=== PATIENT | female | born 1980 | race Two or more races ===

== ENCOUNTER 2020-02-21 20:34 | Inpatient (IN) | payer MEDICAID ==
[~2020-02-21] VITALS: Ht 172.7 cm; Wt 72.6 kg
[~2020-02-21 20:34] MED LIST: PREN-96 PO
[2020-02-21] MEDS: LACTATED RINGER'S 1,000 ML IV SCH ×2 (21:16→23:49)
[2020-02-21] MEDS ORDERED: LACT. RINGERS/OXYTOCIN 20UNITS 1,000 ML IV SCH (21:16)
[2020-02-21] MEDS ORDERED: METHYLERGONOVINE MALEATE 0.2 MG/ML AMP IM PRN (21:30)
[2020-02-21] MEDS ORDERED: CARBOPROST TROMETHAMINE 250 MCG/1ML VIAL IM PRN (21:30)
[2020-02-21] MEDS ORDERED: WITCH HAZEL-GLYCERIN PAD TOP PRN (21:30)
[2020-02-21] MEDS ORDERED: DERMOPLAST 60ML BOTTLE TOP PRN (21:30)
[2020-02-21] MEDS ORDERED: LIDOCAINE 2%HCL (LOCAL ANESTH.) INJ 20ML MDV ID ONE (21:30)
[2020-02-21] MEDS ORDERED: PHISODERM TOP SOLN 240ML BTL TOP PRN (21:30)
[2020-02-21] MEDS ORDERED: BUTORPHANOL TARTRATE 2 MG/1 ML VIAL IV PRN (21:30)
[2020-02-21] MEDS ORDERED: TERBUTALINE SULFATE 1 MG/ML 1ML VIAL SC ONE ×2 (21:57→21:58)
[2020-02-21] MEDS ORDERED: TERBUTALINE SULFATE 1 MG/ML 1ML VIAL SC SCH (22:15)
[2020-02-21 22:35] LABS: Basophils # (auto) 0 10 ^3/uL (0-0.2); Basophils % (auto) 0.2 % (0.0-2.0); Eosinophils # (auto) 0.1 10 ^3/uL (0-0.8); Eosinophils % (auto) 0.9 % (0.0-7.0); Hemoglobin 12.8 g/dL (12.2-16.2); Lymphocytes # (auto) 1.5 10 ^3/uL (0.4-5.4); Lymphocytes % (auto) 11.6 % (10.0-50.0); Mean Corpuscular Hemoglobin 32.6 pg (28.0-32.0); Mean Corpuscular Hgb Conc. 34.5 g/dL (32.0-36.0); Mean Corpuscular Volume 94.5 fL (80.0-100.0); Monocytes # (auto) 0.9 10 ^3/uL (0-1.3); Neutrophils # (auto) 10.4 10 ^3/uL (1.6-8.6); Neutrophils % (auto) 80.3 % (37.0-80.0); Platelet Count (auto) 148 10^3/uL (140-450); Red Blood Cells 3.91 10^6/uL (4.0-5.20); Red Cell Distribution Width 13.4 % (11.8-14.3); White Blood Cell 12.9 10^3/uL (4.4-10.8)
[2020-02-21 22:43] LABS: Urine Bacteria FEW /hpf (None Seen); Urine Blood 3+ /uL (Negative); Urine WBC 80 /hpf (0 - 5)
[2020-02-21] MEDS ORDERED: PHENYLEPHRINE HCL 10 MG/ML VL ONE (22:48)
[2020-02-21] MEDS ORDERED: ePHEDrine SULFATE 50 MG/ML AMP ONE (22:48)
[2020-02-21 22:49] LABS: INR 0.91 (0.9-1.15); Partial Thromboplastin Time 30.2 sec (23.64-32.05)
[2020-02-21] MEDS ORDERED: SUCCINYLCHOLINE CHLORIDE 20 MG/ML 10ML VIAL IV ONE (22:50)
[2020-02-21 22:52] LABS: Potassium 3.9 mmol/L (3.5-5.1)
[2020-02-21] MEDS ORDERED: ROCURONIUM 10MG/ML 10ML VIAL IV ONE (22:53)
[2020-02-21] MEDS ORDERED: oxyTOCIN 10 UNIT/ML 10ML VIAL ONE (22:55)
[2020-02-21] MEDS ORDERED: ceFAZolin 1GM VL ONE (22:56)
[2020-02-21] MEDS ORDERED: PROPOFOL 10 MG/ML 20 ML IV ONE (22:56)
[2020-02-21 22:58] LABS: Albumin 2.8 g/dL (3.4-5.0); BUN/Creatinine Ratio 19.2; Bilirubin, Total 0.2 mg/dL (0.2-1.0); Calcium 8.4 mg/dL (8.5-10.1); Total Protein 6.5 g/dL (6.4-8.2)
[2020-02-21] MEDS ORDERED: fentaNYL CITRATE 100 MCG/2 ML VL ONE (23:05)
[2020-02-21] MEDS ORDERED: METOCLOPRAMIDE HCL 5MG/ml INJ 2ml VIAL ONE (23:09)
[2020-02-21] MEDS ORDERED: NALOXONE HCL 0.4 MG/ML VIAL IV PRN (23:30)
[2020-02-21] MEDS ORDERED: ONDANSETRON HCL 4 MG/2 ML VIAL IV PRN (23:30)
[2020-02-21] MEDS: ceFAZolin 1GM/50ML 50 ML IV SCH (23:30)
[2020-02-21] MEDS ORDERED: ePHEDrine SULFATE 50 MG/ML AMP IV PRN (23:30)
[2020-02-21] MEDS ORDERED: HYDROmorphone HCL 2 MG/ML VL IV PRN ×2 (23:30)
[2020-02-21] MEDS ORDERED: MEPERIDINE HCL (25 MG/ML) 1ML VIAL ONE (23:34)
[2020-02-21] MEDS ORDERED: NEOSTIGMINE 1 MG/ML INJ (10mg/10ML VIAL) ONE (23:39)
[2020-02-21] MEDS ORDERED: GLYCOPYRROLATE 0.2 MG/ML 1ML VIAL ONE (23:39)
[2020-02-22] VITALS (11 sets, daily range): BP systolic 107–124; BP diastolic 58–70
[2020-02-22] MEDS ORDERED: ONDANSETRON HCL 4 MG/2 ML VIAL IV PRN
[2020-02-22] MEDS ORDERED: HYDROmorphone HCL 2 MG/ML VL IV PRN
[2020-02-22] MEDS ORDERED: ACETAMINOPHEN IV 1000 MG/100ML (10MG/ML) IV PRN
[2020-02-22] MEDS ORDERED: ACETAMINOPHEN IV 100 ML IV ONE (00:03)
--- NOTE | 2020-02-22 00:15 | NUR ---
Bottle-feeding Education: Patient encouraged to breastfeed. Patient requests to bottle feed. Benefits of and the risk of providing formula to infant was discussed. Patient verbalized understanding of the benefits and is aware of risk and insists on bottle-feeding. Formula provided and instruction on formula preparation from the [facility] booklet reviewed with patient.
--- NOTE | 2020-02-22 00:50 | NUR ---
Post Op for LDRP: Received patient from PACU via bed to room 5. Patient A/A/Ox4, abdominal binder and bilateral SCD's are in place, IV fluids placed on pump and infusing per order, incisional site dressing clean/dry/intact and Dunbar Catheter to gravity draining clear yellow urine. Uterus firm, 3 above umbilicus, scant bleeding. Incentive Spirometer at bedside and instruction on proper use with return demonstration done by patient.
[2020-02-22] MEDS: LACTATED RINGER'S 1,000 ML IV SCH ×2 (01:43→05:20)
[2020-02-22] MEDS ORDERED: KETOROLAC TROMETH 30 MG/ML 1ML VIAL ONE (02:59)
[2020-02-22] MEDS: KETOROLAC TROMETH 30 MG/ML 1ML VIAL IV PRN ×3 (03:01→18:43)
[2020-02-22 07:40] LABS: Basophils # (auto) 0 10 ^3/uL (0-0.2); Basophils % (auto) 0.1 % (0.0-2.0); Eosinophils # (auto) 0 10 ^3/uL (0-0.8); Eosinophils % (auto) 0.1 % (0.0-7.0); Lymphocytes # (auto) 1.1 10 ^3/uL (0.4-5.4); Lymphocytes % (auto) 7.3 % (10.0-50.0); Mean Corpuscular Hemoglobin 32.3 pg (28.0-32.0); Mean Corpuscular Hgb Conc. 34.4 g/dL (32.0-36.0); Mean Corpuscular Volume 93.8 fL (80.0-100.0); Monocytes # (auto) 0.8 10 ^3/uL (0-1.3); Monocytes % (auto) 5.6 % (0.0-12.0); Neutrophils # (auto) 13.2 10 ^3/uL (1.6-8.6); Neutrophils % (auto) 86.9 % (37.0-80.0); Platelet Count (auto) 137 10^3/uL (140-450); Red Blood Cells 3.41 10^6/uL (4.0-5.20); Red Cell Distribution Width 13.5 % (11.8-14.3); White Blood Cell 15.2 10^3/uL (4.4-10.8)
[2020-02-22] MEDS: ceFAZolin 1GM/50ML 50 ML IV SCH ×2 (07:59→16:20)
--- NOTE | 2020-02-22 12:15 | NUR ---
Day care performed, incisional dressing removed, site is benign, new pads placed, PT taken to room 7B via wheelchair with this RN. No signs of distress noted.
--- NOTE | 2020-02-22 15:15 | NUR ---
Dr. Romeo notified PT o2 saturation ranging from 91%-94%. Currently 92% room air. urine output is minimal at 30ml/hr. Received order to have PT keep using IS and deep breathing.
--- NOTE | 2020-02-22 15:20 | NUR ---
PT up to bedside chair with RN assistance. PT tolerates well and is instructed on the importance of IS and deep breathing. PT demonstrates IS use and deep breathing. Nurses call light given to PT. No signs of distress noted.
--- NOTE | 2020-02-22 15:28 | NUR ---
Dr. Romeo notified PT o2 saturation in range from 91%-94%. Received order for COVID 19 testing.
--- NOTE | 2020-02-22 15:39 | NUR ---
Instructed PT Dr. Romeo requests COVID 19 testing and the benefits of testing due to PT's O2 saturation being low. PT verbalizes she does not want the test done.
--- NOTE | 2020-02-22 17:00 | NUR ---
Baird catheter dc'd Order to discontinue baird catheter. Baird dc'd with clean technique following deflation of balloon. Patient tolerated well with no complaints of pain. Continue care.
--- NOTE | 2020-02-22 19:00 | NUR ---
Ambulation: Patient OOB with standby assistance by RN. Patient ambulated to bathroom with steady gait. Patient able to void without difficulty. [facility] teaching provided with returned demonstration by patient. Patient ambulated back to bed with steady gait and no distress noted.
[2020-02-22] MEDS ORDERED: SIMETHICONE 80 MG CHEWABLE TABLET PO PRN (22:30)
[2020-02-22] MEDS ORDERED: BISACODYL 10 MG RECT SUPP PR PRN (22:30)
[2020-02-22] MEDS ORDERED: HYDROcodone-ACET 5/325MG TAB PO PRN (22:30)
[2020-02-22] MEDS: IBUPROFEN 800 MG TAB PO PRN (23:07)
[2020-02-23 03:00] VITALS: BP 107/67
[2020-02-23] MEDS: HYDROcodone-ACET 5/325MG TAB PO PRN ×2 (04:14→13:38)
[2020-02-23 05:07] LABS: RPR Non Reactive (Non Reactive)
[2020-02-23 07:22] VITALS: BP 104/64
[2020-02-23] MEDS: IBUPROFEN 800 MG TAB PO PRN ×2 (09:14→17:39)
[2020-02-23] MEDS: DOCUSATE SOD 100 MG CAP PO SCH (09:47)
[2020-02-23 11:19] VITALS: BP 119/77
[2020-02-23 15:17] VITALS: BP 121/72
[2020-02-23 18:53] VITALS: BP 116/71
[2020-02-23 23:04] VITALS: BP 123/67
[2020-02-24] MEDS: DOCUSATE SOD 100 MG CAP PO SCH ×2 (00:04→10:32)
[2020-02-24] MEDS: IBUPROFEN 800 MG TAB PO PRN ×2 (00:05→10:35)
[2020-02-24 02:56] VITALS: BP 113/70
[2020-02-24] MEDS: HYDROcodone-ACET 5/325MG TAB PO PRN (05:36)
[2020-02-24 06:58] VITALS: BP 106/80
--- NOTE | 2020-02-24 07:08 | NUR ---
Discharge: Discharge instructions given as ordered. Pt encouraged to follow up with [facility] as instructed. All questions and concerns addressed. Patient verbalized understanding. Medication reconciliation completed and copy given to patient.
--- NOTE | 2020-02-24 10:48 | NUR ---
Staple removal Burns removed using clean technique, Steri strips applied and educated on incisional care. Patient tolerated well. Continued care.
[2020-02-24 11:00] VITALS: BP 139/82
--- NOTE | 2020-02-24 11:05 | NUR ---
Discharge: Patient taken to vehicle via wheelchair with all personal belongings, accompanied by staff and family member. No distress noted at time of departure, no adverse changes in status since initial assessment.
== END 2020-02-24 11:05 | disposition home or self-care (01) | DRG 540 ==
LOC: LDRP 20:34 → OBSVTOIN 20:34 → LDRP 21:44
PROVIDERS: ADMIT Obstetrics & Gynecology; ATTEND Obstetrics & Gynecology
PROC: 10D00Z1 Extraction of Products of Conception, Low, Open Approach (ICD-10-PCS; principal; 2020-02-21 22:48)
DX: O76 Abnormality in fetal heart rate and rhythm complicating labor and delivery (principal); O69.0XX0 Labor and delivery complicated by prolapse of cord, not applicable or unspecified; O77.0 Labor and delivery complicated by meconium in amniotic fluid; Z37.0 Single live birth; Z3A.39 39 weeks gestation of pregnancy
CPT/HCPCS: 36415; 59025; 80053; 81001; 81002; 84112; 85025; 85610; 85730; 86592; 86850; 86900; 86901; 94760; 96360; 96361; 96366; 96372; G0378; J0131; J0330; J0690; J1885; J2405; J2590; J2704